=== PATIENT | male | born 2000 | race Two or more races ===

== ENCOUNTER 2020-01-07 16:34 | Emergency (ER) | payer BC, OTHER ==
[~2020-01-07] VITALS: Ht 182.9 cm; Wt 108.9 kg
[2020-01-07 21:34] VITALS: BP 151/101
== END 2020-01-07 22:36 | disposition home or self-care (01) ==
LOC: ER 16:42
DX: S43.402A Unspecified sprain of left shoulder joint, initial encounter (principal); S13.9XXA Sprain of joints and ligaments of unspecified parts of neck, initial encounter; S33.5XXA Sprain of ligaments of lumbar spine, initial encounter; F17.210 Nicotine dependence, cigarettes, uncomplicated; V49.9XXA Car occupant (driver) (passenger) injured in unspecified traffic accident, initial encounter; Y93.89 Activity, other specified; Y92.89 Other specified places as the place of occurrence of the external cause; Y99.8 Other external cause status
CPT/HCPCS: 72070; 72100; 73030